=== PATIENT | female | born 1975 | race Caucasian/White ===

== ENCOUNTER 2018-08-07 22:55 | Inpatient (IN) | payer BC ==
[2018-08-07] MEDS ORDERED: Morphine 4 MG/ML VIAL ONE (23:38)
[2018-08-07] MEDS ORDERED: Ondansetron PF 4 MG/2 ML Vial ONE (23:38)
[2018-08-08 00:09] LABS: Hemoglobin 14.4 g/dL (12.0-16.0); Mean Corpuscular Hemoglobin 32.4 pg (27.0-31.0); Mean Corpuscular Volume 89.9 fL (78.0-98.0); Mean Platelet Volume 8.4 fL (7.4-10.4); Platelet Count 298 thou/uL (130-400); Red Blood Cell (RBC) Count 4.45 mill/uL (4.20-5.40); White Blood Cell (WBC) Count 12.3 thou/uL (4.8-10.8)
[2018-08-08 00:15] LABS: Lymphocytes 19 % (21-51); MDiff Complete? YES; Monocytes 6 % (0-10); Neutrophil 75 % (42-75)
[2018-08-08 00:20] LABS: ALT (SGPT) 78 U/L (8-55); AST (SGOT) 133 U/L (5-34); Albumin 4.3 g/dL (3.5-5.0); Alkaline Phosphatase 68 U/L (40-150); Anion Gap 16 mmol/L (10-20); BUN (Urea Nitrogen) 10 mg/dL (7.0-18.7); Bilirubin, Total 0.6 mg/dL (0.2-1.2); Calc. Creatinine Clearance 0 mL/min (70-130); Calcium 10.1 mg/dL (7.8-10.44); Carbon Dioxide 25 mmol/L (22-29); Chloride 103 mmol/L (98-107); Estimated GFR-MDRD 73; Globulin 3.3 g/dL (2.4-3.5); Glucose 109 mg/dL (70-105); Lipase 26 U/L (8-78); Protein, Total 7.6 g/dL (6.0-8.3); Sodium 140 mmol/L (136-145)
[2018-08-08 05:06] VITALS: BMI 32.9
[2018-08-08] MEDS ORDERED: Morphine 4 MG/ML VIAL SLOW IVP PRN (05:11)
[2018-08-08] MEDS ORDERED: Dextrose 5 %-0.45 % NaCl 1,000 ML IV SCH (05:15)
[2018-08-08] MEDS: Piperacillin/Tazobactam 3.375 GM in Sodium Chloride 0.9% 100 ML IVPB SCH ×2 (05:29→13:25)
[2018-08-08] MEDS: Ondansetron PF 4 MG/2 ML Vial IVP PRN ×2 (06:36→13:39)
--- NOTE | 2018-08-08 07:35 | ULT ---
PRELIMINARY REPORT/[facility]/EMERGENCY AFTER HOURS PROCEDURE: EXAM: US Abdomen Limited, Right Upper Quadrant EXAM DATE/TIME: 08/08/2018 1:18 AM CLINICAL HISTORY: 43 years old, female; Other: Ruq pain TECHNIQUE: Imaging protocol: Real-time ultrasound of the abdomen with image documentation. Examination was focused on the right upper quadrant. COMPARISON: No relevant prior studies available. FINDINGS: Liver: No acute findings. No mass. Gallbladder: Cholelithiasis measuring up to 2.6 cm. Mild gallbladder wall thickening. Positive [place] sign. Common bile duct: Unremarkable. Pancreas: Limited visualization due to bowel gas. Right kidney: No acute findings. No mass. No hydronephrosis. IMPRESSION: Cholelithiasis with mild gallbladder wall thickening and positive Ruano's sign concerning for acute cholecystitis. Thank you for allowing us to participate in the care of your patient. Dictated and Authenticated by: Pepe Rice MD 08/08/2018 2:49 AM Central Time ([place] & [place]) FINAL REPORT SONOGRAM RIGHT UPPER QUADRANT PERFORMED ON AN EMERGENCY BASIS: Date: 08/08/18 Time: 0119 hours HISTORY: Right upper quadrant pain. FINDINGS/IMPRESSION: Agree with the preliminary report by Dr. Rice from [facility]. Cholelithiasis is confirmed. Positive sonog raphic Ruano sign. Evidence of acute cholecystitis. Transcribed Date/Time: 08/08/2018 7:40 AM
[2018-08-08] MEDS ORDERED: Iothalamate Meglumine 60% 50 ML VIAL FS ONE (07:49)
[2018-08-08] MEDS ORDERED: Bupivacaine/Epinephrine 0.25% 30 ML VIAL ONE ×2 (07:49→09:31)
[2018-08-08] MEDS ORDERED: Midazolam HCl 2 mg/2 ml Vial ONE (08:22)
[2018-08-08] MEDS ORDERED: Fentanyl 100 MCG/2 ML VIAL ONE ×2 (08:22→11:16)
--- NOTE | 2018-08-08 09:42 | HP ---
CHIEF COMPLAINT: Abdominal pain. HISTORY: Ms. Ruano is a 43-year-old woman with intermittent upper abdominal discomfort for many months. She has had a kind of constant discomfort, bloating, and pressure in the upper abdomen for the past week, who then at 8 a.m. had onset of severe pain, which brought her into the emergency room. She had nausea, but no vomiting. No fevers or chills. Pain is better since receiving pain medication in the ER. She denies any history of jaundice, icterus, or pancreatitis and is otherwise healthy. Nothing that she tried at home to relieve the pain was effective. PAST MEDICAL HISTORY: GERD and anxiety. PAST SURGICAL HISTORY: Tubal ligation and laparoscopic hysterectomy. SOCIAL HISTORY: The patient does not smoke, drink, or use illicit drug. ALLERGIES: SHE HAS AN ADVERSE DRUG REACTION TO PHENERGAN, WHICH MAKES HER "LOOPY." OUTPATIENT MEDICATIONS: Include fluoxetine 60 mg p.o. daily and omeprazole 20 mg p.o. daily. FAMILY HISTORY: None. PHYSICAL EXAMINATION: VITAL SIGNS: The patient is afebrile. Heart rate 77, respirations 16, 95% saturated on room air, and blood pressure 126/75. GENERAL: Reveals a healthy woman in no acute distress. She is not flushed or toxic. She is not jaundiced or icteric. HEENT: Unremarkable. NECK: Supple without lymphadenopathy or thyroid nodules. HEART: Regular in its rate and rhythm without murmurs, rubs, or gallops. LUNGS: Clear to auscultation bilaterally. ABDOMEN: Soft and nondistended. No palpable masses or hernias. Healed laparoscopic incisions. Tender to palpation in the right upper quadrant without rigidity, rebound, or guarding. EXTREMITIES: Warm and well-perfused without edema. NEURO: No focal deficits. PSYCHIATRIC: Alert, oriented, and appropriate. LABORATORY DATA: White count is elevated at 12, hematocrit 40, platelets 298. Electrolytes are unremarkable. AST is mildly elevated at 133 and ALT is mildly elevated at 78, but bilirubin is normal at 0.6. IMAGING STUDIES: Gallbladder ultrasound showed stones with wall thickening and a positive Ruano sign, but her common bile duct was normal caliber and no other abnormalities were seen. ASSESSMENT: Cholelithiasis and cholecystitis with mild elevation in liver enzymes, but normal caliber bile duct. PLAN: Laparoscopic cholecystectomy with intraoperative cholangiogram. The patient's diagnosis and recommended treatment were discussed with her and her daughter. Inherent risks of the surgery were also discussed. These include, but are not limited to bleeding, infection, risks of anesthesia, damage to nearby structures including bowel, liver, and bile duct, need for other procedures and need for open surgery. She understands that if her cholangiogram shows evidence of stones in main bile duct, she will require an ERCP. All of her questions were answered. She is on scheduled SUNDAYTOZ. Job ID: [id number]
[2018-08-08] MEDS ORDERED: SUGAMMADEX SODIUM 200 MG/2 ML VIAL ONE (10:05)
--- NOTE | 2018-08-08 10:47 | RAD ---
OPERATIVE CHOLANGIOGRAM: Date: 08/08/18 HISTORY: Intraoperative film. FINDINGS: Two films show filling of a nondilated common duct. No filling defect seen. There is motion artifact. Emptying into the duodenum is noted. Fluoro time: 11 seconds. Cumulative dose: 2.51 mGy*cm^2. IMPRESSION: Unremarkable operative cholangiogram. POS: TPC
[2018-08-08 11:54] VITALS: TEMP 97.8
[2018-08-08] MEDS ORDERED: Morphine 2 MG/ML SYRINGE SLOW IVP PRN (12:56)
[2018-08-08] MEDS ORDERED: Ondansetron PF 4 MG/2 ML Vial SLOW IVP PRN (12:59)
[2018-08-08] MEDS ORDERED: Acetaminophen 325 MG TAB PO PRN (13:00)
[2018-08-08] MEDS ORDERED: HYDROcodone/Acetaminophen 5/325 mg Tablet PO PRN (13:00)
[2018-08-08] MEDS ORDERED: Ibuprofen 200 MG TAB PO PRN (13:01)
[2018-08-08] MEDS ORDERED: Rocuronium Bromide 10 MG/ML (10ML VIAL) ONE (13:36)
[2018-08-08] MEDS ORDERED: PHENYLEPHRINE-NS 100 MCG/ML 10 ML SYRINGE ONE (13:36)
[2018-08-08] MEDS ORDERED: PROPOFOL 200 MG/20 ML VIAL ONE (13:36)
[2018-08-08] MEDS ORDERED: Dexamethasone 20 MG/5 ML VIAL ONE (13:36)
[2018-08-08] MEDS ORDERED: Ketorolac Tromethamine 30 MG/ML VIAL ONE (13:36)
[2018-08-08] MEDS ORDERED: Ondansetron PF 4 MG/2 ML Vial ONE (13:36)
[2018-08-08 17:08] VITALS: BP 138/96
--- NOTE | 2018-08-09 17:13 | PDOC.OP ---
Operative Note - Operative Note Operative Note: DATE OF PROCEDURE: 08/08/2018 PROCEDURES: Laparoscopic cholecystectomy with intraoperative cholangiogram. SURGEON: Renee Dimas M.D. PREOPERATIVE DIAGNOSIS: Cholelithiasis and cholecystitis with possible choledocholithiasis POSTOPERATIVE DIAGNOSIS: Cholelithiasis and cholecystitis FINDINGS: White walled gallbladder with edema at the neck, normal intraoperative cholangiogram. HISTORY: Patient with signs and symptoms of biliary colic. Laparoscopic cholecystectomy was recommended for symptomatic relief and prevention of future episodes. Intraoperative cholangiogram was also recommended. PROCEDURE: After informed consent was obtained and appropriate preoperative antibiotics were administered, the patient was taken to the operating room and placed in the supine position and general endotracheal anesthesia was administered. The stomach was decompressed with an OG tube and the abdomen was prepped and draped in standard sterile fashion. Local anesthesia was infused to the skin and subcutaneous tissues at the umbilical level. A transverse skin incision was made. The fascia was elevated and a Veress needle was placed into the abdominal cavity without difficulty. Opening pressure was less than 5 and carbon dioxide gas easily insufflated to an intra-abdominal pressure of 15, which the patient tolerated well. The Veress needle was withdrawn and a [place] port advanced under direct vision. The abdominal cavity was carefully examined. There was no evidence of Veress needle or of trocar injury. Local anesthesia was infused to the skin and subcutaneous tissues at the epigastric, right upper quadrant, and right lateral abdominal sites and trocars were placed under direct vision of the laparoscope. The fundus of the gallbladder was grasped and retracted superiorly. The infundibulum was grasped and retracted laterally. The serosa was stripped inferiorly at the level of the neck of the gallbladder exposing the cystic duct and artery which were traced clearly to their insertion in the gallbladder. These were dissected free circumferentially and the cystic duct was clipped at the level of the neck of the gallbladder. The cystic artery was clipped but not divided. An incision was made in the cystic duct inferior to the clip and the cystic duct was palpated with no stones palpable. Clear bile was seen to flow from the cystic duct incision. A cholangiogram catheter was introduced and placed into the cystic duct and secured with a clip. A cholangiogram was obtained which showed an adequate length of cystic duct. There was normal filling of the common bile duct with free flow of contrast into the duodenum. There was normal retrograde flow into the common hepatic duct beyond the level of the bifurcation without filling defects. The cholangiogram catheter was removed and the cystic duct clipped below the incision in the cystic duct. The cystic duct was divided between these clips and the previously placed clip. The cystic artery was clipped and divided between the previously placed clips. The gallbladder was then dissected free of the gallbladder bed using hook electrocautery. Prior to complete removal of the gallbladder from the gallbladder bed, the area of the cystic duct and artery stumps was examined. The clips were in good position completely across these structures and there was no bleeding and no leakage of bile. The gallbladder was then placed into an EndoCatch bag and drawn out through the epigastric incision. The epigastric trocar was replaced and the operative site easily irrigated to clear. There was no significant bleeding or spillage of bile. The epigastric trocar was removed and the fascia closed under direct laparoscopic vision with a 0 Vicryl suture on a GraNee needle in a figure -of-eight manner with excellent technical result. The right upper quadrant and right lateral abdominal trocars were removed and hemostasis verified. Carbon dioxide gas was allowed to desufflate through the umbilical trocar which was then removed. The skin incisions were closed with 4-0 subcuticular Monocryl sutures and Dermabond dressings were placed. The patient was extubated and taken to the recovery room in good condition. There were no complications. ESTIMATED BLOOD LOSS: Minimal. SPECIMEN : Gallbladder and contents.
== END 2018-08-08 17:55 | disposition home or self-care (01) | DRG 419 ==
LOC: SCSER 22:55 → SURG A 08-08 03:38
PROVIDERS: ADMIT Surgery; ATTEND Surgery
PROC: 0FT44ZZ Resection of Gallbladder, Percutaneous Endoscopic Approach (ICD-10-PCS; principal; 2018-08-08)
PROC: BF131ZZ Fluoroscopy of Gallbladder and Bile Ducts using Low Osmolar Contrast (ICD-10-PCS; 2018-08-08)
DX: K80.10 Calculus of gallbladder with chronic cholecystitis without obstruction (principal); K21.9 Gastro-esophageal reflux disease without esophagitis; F41.9 Anxiety disorder, unspecified; Z88.8 Allergy status to other drugs, medicaments and biological substances; Z90.710 Acquired absence of both cervix and uterus; Z98.51 Tubal ligation status
CPT/HCPCS: 47532; 76705; 80053; 83690; 84484; 85025; 88304; 93005; 96361; 96374; 96375; J1610; J2250; J2270; J2405; J2543; J3010; J3490; Q9961

== ENCOUNTER 2021-09-25 08:30 | Outpatient (CLI) | payer BC | END 2021-09-25 08:31 | disposition home or self-care (01) | LOC: BICCT 08:30 | PROVIDERS: ATTEND Nurse Practitioner Family | DX: E27.8 Other specified disorders of adrenal gland (principal); D35.01 Benign neoplasm of right adrenal gland; K44.9 Diaphragmatic hernia without obstruction or gangrene; Z90.49 Acquired absence of other specified parts of digestive tract | CPT/HCPCS: 74170 ==

== ENCOUNTER 2023-05-17 15:22 | Outpatient (CLI) | payer BC | END 2023-05-17 15:23 | disposition home or self-care (01) | LOC: BICMAMMO 15:22 | PROVIDERS: ATTEND Nurse Practitioner Family | DX: Z12.31 Encounter for screening mammogram for malignant neoplasm of breast (principal); Z80.3 Family history of malignant neoplasm of breast; N64.89 Other specified disorders of breast | CPT/HCPCS: 77063; 77067 ==

== ENCOUNTER 2023-05-20 09:55 | Outpatient (CLI) | payer BC | END 2023-05-20 09:56 | disposition home or self-care (01) | LOC: BICMAMMO 09:55 | PROVIDERS: ATTEND Nurse Practitioner Family | DX: N64.89 Other specified disorders of breast (principal) | CPT/HCPCS: G0279 ==

== ENCOUNTER 2024-01-18 09:30 | Outpatient (CLI) | payer BC | END 2024-01-18 09:31 | disposition home or self-care (01) | LOC: BICMAMMO 09:30 | PROVIDERS: ATTEND Nurse Practitioner Family | DX: Z12.31 Encounter for screening mammogram for malignant neoplasm of breast (principal); R92.331 Mammographic heterogeneous density, right breast; N64.89 Other specified disorders of breast; Z87.898 Personal history of other specified conditions; Z80.3 Family history of malignant neoplasm of breast | CPT/HCPCS: G0279 ==